=== PATIENT | male | born 1975 | race Two or more races ===

== ENCOUNTER 2022-10-08 13:46 | Emergency (ER) | payer MEDICAID ==
[~2022-10-08] VITALS: Ht 160 cm; Wt 72.7 kg
[2022-10-08 14:10] VITALS: BP 130/106
== END 2022-10-08 16:17 | disposition left against medical advice (07) ==
LOC: ER 13:46
DX: R68.84 Jaw pain (principal); Z53.21 Procedure and treatment not carried out due to patient leaving prior to being seen by health care provider

== ENCOUNTER → 2024-05-05 | Outpatient (CLI) | payer MEDICAID | END | disposition home or self-care (01) | LOC: RT 14:49 | PROVIDERS: ATTEND Internal Medicine Pulmonary Disease | DX: R06.02 Shortness of breath (principal); R06.00 Dyspnea, unspecified | CPT/HCPCS: 94060; 94727; 94729 ==